=== PATIENT | female | born 1970 | race American Indian/Alaskan Native ===

== ENCOUNTER 2017-11-22 09:38 | Emergency (ER) | payer OTHER ==
--- NOTE | 2017-11-22 10:53 | Emergency Department Report ---
ED Female HPI - General Chief complaint: Skin/Abscess/Foreign Body Stated complaint: FOREIGN BODY VAGINAL AREA Time Seen by Provider: 11/22/17 10:12 Source: patient, family Mode of arrival: Ambulatory Limitations: No Limitations - History of Present Illness Initial comments: Patient reports that her menstrual cup is in her vagina and she is unable to get it out. She said it's been there for 5-6 hours. She denies any abdominal or back pain. Patient is currently on her menses and having vaginal bleeding. Her menses started 11/22/2017 and patient's that she has a history of fibroids with heavy bleeding. She says she had a myomectomy in 2003 but her fibroids came back. Denies any urinary burning frequency urgency. Patient has a history of high blood pressure and not taking her blood pressure medication because she said she hasn't been to the doctor and she is out of her medication. Her blood pressure is 165/111 and asymptomatic. Denies any headache, chest pain, shortness of breath, blurred vision or nausea or vomiting. Denies any back or abdominal pain. MD Complaint: vaginal bleeding, other (foreign body in vagina) Onset/Timin -: hour(s) Location: other (vagina) Severity scale (0 -10): 0 Are you Now?: No Last Menstrual Period: 11/21/17 EDC: 08/28/18 Associated Symptoms: vaginal bleeding, other (foreign body in vagina). denies: vaginal discharge, abdominal pain, nausea/vomiting, fever/chills, headaches, loss of appetite, dysuria, hematuria, rash, seizure, shortness of breath, syncope, weakness - Related Data Sexually active: Yes Previous Rx's Medication Instructions Recorded Last Taken Type Metoprolol/Hydrochlorothiazide 1 each PO QDAY 30 Days #30 tablet 11/22/17 Unknown Rx [Metoprolol HCTZ 50-25 mg TAB] amLODIPine [Norvasc] 10 mg PO DAILY 30 Days #30 tab 11/22/17 Unknown Rx Allergies Allergy/AdvReac Type Severity Reaction Status Date / Time Sulfa (Sulfonamide AdvReac Hives Verified 11/22/17 12:27 Antibiotics) ED Review of Systems ROS: Stated complaint: FOREIGN BODY VAGINAL AREA Other details as noted in HPI Comment: All other systems reviewed and negative Constitutional: no symptoms reported Respiratory: no symptoms reported Cardiovascular: denies: chest pain, palpitations, dyspnea on exertion, edema, syncope, paroxysmal nocturnal dyspnea Genitourinary: denies: urgency, dysuria, frequency, hematuria, discharge Musculoskeletal: denies: back pain, joint swelling, arthralgia, myalgia Skin: denies: rash Neurological: denies: headache, numbness, paresthesias, confusion, abnormal gait , vertigo ED Past Medical Hx - Past Medical History Previous Medical History?: Yes Hx Hypertension: Yes - Surgical History Past Surgical History?: Yes Additional Surgical History: Myomectomy - Family History Family history: hypertension - Social History Smoking Status: Never Smoker Substance Use Type: None - Medications Home Medications: Home Medications Medication Instructions Recorded Confirmed Last Taken Type Metoprolol/Hydrochlorothiazide 1 each PO QDAY 30 Days #30 tablet 11/22/17 Unknown Rx [Metoprolol HCTZ 50-25 mg TAB] amLODIPine [Norvasc] 10 mg PO DAILY 30 Days #30 tab 11/22/17 Unknown Rx ED Physical Exam - General Limitations: No Limitations General appearance: alert, in no apparent distress - Head Head exam: Present: atraumatic, normocephalic, normal inspection - Eye Eye exam: Present: normal appearance, PERRL, EOMI Pupils: Present: normal accommodation - ENT ENT exam: Present: normal exam, normal orophraynx, mucous membranes moist - Neck Neck exam: Present: normal inspection, full ROM. Absent: tenderness, meningismus, lymphadenopathy, thyromegaly - Respiratory Respiratory exam: Present: normal lung sounds bilaterally. Absent: respiratory distress, chest wall tenderness, accessory muscle use - Cardiovascular Cardiovascular Exam: Present: normal rhythm, tachycardia, normal heart sounds, other (the pressure elevated and asymptomatic). Absent: systolic murmur, diastolic murmur - GI/Abdominal GI/Abdominal exam: Present: soft, normal bowel sounds. Absent: distended, tenderness, guarding, rebound, rigid, organomegaly, mass, bruit, pulsatile mass , hernia - External exam: Present: bleeding. Absent: erythema, swelling, lesions, lacerations, ecchymosis Speculum exam: Present: vaginal bleeding, foreign body (vaginal cup). Absent: erythema, vaginal discharge, cervical discharge, tissue, laceration Bi-manual exam: Present: normal bi-manual exam - Expanded Exam Expanded Female exam: Absent: vaginal laceration, tissue present in vagina, herpetic lesions, vulvar erythema, vulvar tenderness, foreign body External exam: Present: normal Amniotic fluid: Present: none Speculum exam: Present: cervical OS closed, vaginal bleeding. Absent: vaginal discharge - Extremities Exam Extremities exam: Present: normal inspection, full ROM, normal capillary refill , other (no no clubbing, cyanosis or edema. +2 pulses all extremities and no neurovascular compromise). Absent: tenderness, pedal edema, joint swelling, calf tenderness - Back Exam Back exam: Present: normal inspection, full ROM, other (ambulated without any difficulties). Absent: tenderness, CVA tenderness (R), CVA tenderness (L), muscle spasm, paraspinal tenderness, vertebral tenderness, rash noted - Neurological Exam Neurological exam: Present: alert, oriented X3, normal gait, reflexes normal. Absent: motor sensory deficit - Psychiatric Psychiatric exam: Present: normal affect, normal mood - Skin Skin exam: Present: warm, dry, intact, normal color. Absent: rash ED Course Vital Signs 11/22/17 11/22/17 11/22/17 09:44 09:47 12:27 Temperature 98.7 F 98.7 F Pulse Rate 108 H 108 H 87 Respiratory 18 18 Rate Blood Pressure 165/111 Blood Pressure 165/111 187/108 [Right] O2 Sat by Pulse 98 98 98 Oximetry 11/22/17 13:04 Temperature Pulse Rate 76 Respiratory 19 Rate Blood Pressure 160/86 Blood Pressure [Right] O2 Sat by Pulse 100 Oximetry Vital Signs 11/22/17 11/22/17 11/22/17 09:44 09:47 12:27 Temperature 98.7 F 98.7 F Pulse Rate 108 H 108 H 87 Respiratory 18 18 Rate Blood Pressure 165/111 Blood Pressure 165/111 187/108 [Right] O2 Sat by Pulse 98 98 98 Oximetry Vital Signs 11/22/17 11/22/17 11/22/17 09:44 09:47 12:27 Temperature 98.7 F 98.7 F Pulse Rate 108 H 108 H 87 Respiratory 18 18 Rate Blood Pressure 165/111 Blood Pressure 165/111 187/108 [Right] O2 Sat by Pulse 98 98 98 Oximetry 11/22/17 13:04 Temperature Pulse Rate 76 Respiratory 19 Rate Blood Pressure 160/86 Blood Pressure [Right] O2 Sat by Pulse 100 Oximetry - Reevaluation(s) Reevaluation #1: 11/22/17 12:25 With elevated blood pressure. Clonidine 0.2 mg and recheck. [facility] has [facility] and says she is supposed to be on metoprolol/ HCTZ 50/25 and Norvasc that she has not taken it. She says she has normal blood pressure with taken medication but she has been noncompliant. She is asymptomatic with elevated blood pressure Reevaluation #2: 11/22/17 13:35 Patient blood pressure is better. Discharged home in stable condition - Procedure Description Procedures done: Foreign body removal vagina: Patient here reports vaginal cup that she cannot remove from her vagina. Pelvic exam with speculum. Vaginal cup remove with large forcep. Vaginal cup intact. Patient will large amount of bleeding in her vaginal vault from abnormal menses which is chronic due to fibroids. I discussed the patient she will need to follow up with her [employer] to discuss treatment for large amount of vaginal bleeding. Patient tolerated procedure well. ED Medical Decision Making - Medical Decision Making ED course: Patient is here reports that she has vaginal, in her vagina that she cannot remove. Vaginal cough or move. Please see procedure note for detail. I instructed patient that before she placed another vaginal cup and she will need to see her [employer] for other options. Patient found to have significant amount of blood in her vaginal vault. She is also found to have elevated blood pressure and she is supposed to be taking and metoprolol/HCTZ and Norvasc which she says she has not been taken because she is out and has not gone to her primary care for refill. Patient given clonidine 0.2 mg by mouth. Patient blood pressure is better. She was discharged home with prescription for Norvasc and metoprolol and HCTZ and to follow up with her primary care physician in 2 days. She was understanding the discharge instruction and discharged home in stable condition. I also told her that she needs to follow up with [employer]. Critical care attestation.: If time is entered above; I have spent that time in minutes in the direct care of this critically ill patient, excluding procedure time. ED Disposition Clinical Impression: Elevated blood pressure reading with diagnosis of hypertension Menorrhagia Qualifiers: Menorrahagia type: with regular cycle Qualified Code(s): N92.0 - Excessive and frequent menstruation with regular cycle Foreign body in vagina Qualifiers: Encounter type: initial encounter Qualified Code(s): T19.2XXA - Foreign body in vulva and vagina, initial encounter Disposition: - TO HOME OR SELFCARE Is pt being admited?: No Does the pt Need Aspirin: No Condition: Stable Instructions: Vaginal Foreign Body (ED), Menorrhagia (ED), Hypertension (ED) Additional Instructions: follow up with your [employer] for menorrhagia which is large amount of vaginal bleeding with menses Please avoid putting any foreign object in your vagina Please take your blood pressure medication because your blood pressure was very high today and this could lead to a stroke, hard of top, aneurysm, kidney failure and/or Prescriptions: amLODIPine [Norvasc] 10 mg PO DAILY 30 Days #30 tab Metoprolol/Hydrochlorothiazide [Metoprolol HCTZ 50-25 mg TAB] 1 each PO QDAY 30 Days #30 tablet Referrals: PRIMARY MD WALT [Primary Care Provider] - 11/24/17 LEANDRO NEWTON MD [Staff Physician] - 2-3 Days Forms: Accompanied Note, Work/School Release Form(ED)
[2017-11-22] MEDS ORDERED: CATAPRES PO ONE (12:30)
[2017-11-22 13:10] VITALS: BP 160/86
== END 2017-11-22 13:38 | disposition home or self-care (01) ==
LOC: ED 09:38
DX: T19.2XXA Foreign body in vulva and vagina, initial encounter (principal); I10 Essential (primary) hypertension; N92.0 Excessive and frequent menstruation with regular cycle; X58.XXXA Exposure to other specified factors, initial encounter; Y93.89 Activity, other specified; Y92.89 Other specified places as the place of occurrence of the external cause; Y99.8 Other external cause status
CPT/HCPCS: 99283